=== PATIENT | female | born 1965 | race Caucasian/White ===

== ENCOUNTER 2017-09-01 10:50 | Day surgery (SDC) | payer BC ==
[2017-09-01] MEDS ORDERED: GENTAMICIN 80 MG/100 ML BAG 80 MG/100 ML BAG IV ONE (11:33)
[2017-09-01] MEDS ORDERED: Ringers Lactate 1,000 ML IV ONE (11:33)
[2017-09-01 11:42] LABS: Urine Appearance CLOUDY; Urine Bilirubin NEGATIVE (NEG); Urine Blood NEGATIVE (NEG); Urine Color ORANGE; Urine Glucose NEGATIVE (NEG); Urine Protein TRACE (NEG); Urine Specific Gravity 1.015 (1.005-1.030)
[2017-09-01 11:43] LABS: Urine Microscopic Reflex ORDER UMIC
[2017-09-01 11:44] LABS: Absolute Lymphocytes (CBC) 0.8 K/uL (0.7-4.9); Absolute Monocytes 0.6 K/uL (0.1-1.3); Absolute Neutrophil 9.5 K/uL (1.8-8.0); Basophils % 0.4 % (0-1.3); Eosinophils % 0.1 % (0-4.4); Hematocrit 36.1 % (36.0-45.0); Lymphocytes % 7.4 % (15.3-44.8); MCH 30.8 pg (27.0-35.0); MCV 92.6 fL (80-100); MPV 8.3 fL (7.6-11.3); Monocytes % 5.7 % (3.3-12.3); RBC Red Blood Cell Count 3.89 M/uL (3.86-4.86)
[2017-09-01 11:46] LABS: Protime INR 1.07
[2017-09-01 11:50] LABS: Potassium 4.5 mEq/L (3.6-5.0)
[2017-09-01 11:51] LABS: Urine Bacteria >50 /HPF (<20); Urine Culture Reflex Order REFLEXED
[2017-09-01 11:54] LABS: Phosphorus 2.8 mg/dL (2.5-4.3)
--- NOTE | 2017-09-01 12:28 | RAD REPORT ---
EXAM DESCRIPTION: RAD - Chest Pa And Lat (2 Views) - 09/01/2017 12:23 pm CLINICAL HISTORY: Preop chest, pending procedure COMPARISON: None. TECHNIQUE: PA and lateral views of the chest were obtained. FINDINGS: The lungs are clear. Heart size is normal and central vasculature is within normal limit s. No pleural effusion or pneumothorax seen. No acute bony finding noted. No aortic abnormality. IMPRESSION: No acute cardiopulmonary process.
[2017-09-01] MEDS ORDERED: SCOPOLAMINE HYDROBROMIDE PATCH TD ONE (12:30)
--- NOTE | 2017-09-01 12:31 | RAD REPORT ---
EXAM DESCRIPTION: RAD - Abdomen 1 View (KUB) - 09/01/2017 12:23 pm CLINICAL HISTORY: Pre-procedure examination COMPARISON: None. FINDINGS: Bowel gas pattern is non-specific. No obstruction, free air or pneumatosis. Clips in the pelvis are presumed to be from tubal ligation. No acute bone finding. No calcifications are seen overlying the kidneys or ureters to the pelvic inlet level. Several calcif ications are seen in the lower pelvis. Most of these have the appearance of phleboliths. There are fe w right and left calcifications that are potentially distal ureteral calculi. IMPRESSION: Multiple calcifications in the pelvis. These are mostly or entirely phleboliths. There are bilateral calcifications present in a location that could indicate distal ureteral calculi. No renal calcifications and no ureteral calcifications to the pelvic inlet level.
[2017-09-01] MEDS ORDERED: PROPOFOL 200 MG/20 ML VIAL IV ONE (12:41)
[2017-09-01] MEDS ORDERED: MIDAZOLAM HCL 2 MG/2 ML INJ ONE (12:42)
[2017-09-01] MEDS ORDERED: FENTANYL CITR 100 MCG/2 ML ONE (12:42)
[2017-09-01] MEDS ORDERED: LIDOCAINE 2% MPF 5 ML VIAL ONE (12:43)
[2017-09-01 13:20] LABS: Blood Morphology Comment NOT SEEN (NOT SEEN); Platelet Estimate ADEQ; Urine White Blood Cell Casts OK
[2017-09-01] MEDS ORDERED: ONDANSETRON 4 MG/2 ML VIAL ONE (13:52)
--- NOTE | 2017-09-01 13:56 | RAD REPORT ---
EXAM DESCRIPTION: RAD - Urethrocystogrphy Retrograde - 09/01/2017 1:50 pm FINDINGS: Abdominal fluoroscopy performed. Multiple fluoroscopic images were obtained during fluoroscopic assisted placement of a ureteral stent . No suspicious or unexpected findings.
--- NOTE | 2017-09-01 16:20 | EKG ---
Test Date: 2017-09-01 Test Time: 11:25:33 Foundry Technician: JULIET MEASUREMENT RESULTS: Intervals: Rate: 81 ND: 168 QRSD: 92 QT: 386 QTc: 448 Riner: P: 65 ND: 168 QRS: 78 T: 70 INTERPRETIVE STATEMENTS: Normal sinus rhythm Normal ECG No previous ECG available for comparison Electronically Signed On 09-01-17 16:19:59 CDT by Alton Leslie
== END 2017-09-01 15:10 | disposition home or self-care (01) ==
LOC: OR 10:50 → MERGE 10:50 → OR 15:10
PROVIDERS: ATTEND Urology
PROC: 0TC68ZZ Extirpation of Matter from Right Ureter, Via Natural or Artificial Opening Endoscopic (ICD-10-PCS; 2017-09-01)
PROC: 0T768DZ Dilation of Right Ureter with Intraluminal Device, Via Natural or Artificial Opening Endoscopic (ICD-10-PCS; principal; 2017-09-01 12:45)
DX: N20.1 Calculus of ureter (principal); I10 Essential (primary) hypertension; F32.9 Major depressive disorder, single episode, unspecified
CPT/HCPCS: 36415; 51610; 71046; 74018; 74450; 80048; 81003; 81015; 82360; 84100; 84550; 85025; 85610; 85730; 87077; 87086; 87088; 87186; 88300; 93005; J1580; J2250; J2405; J3010; Q9967